=== PATIENT | male | born 1990 | race African-American/Black ===

== ENCOUNTER 2018-10-21 09:38 | Emergency (ER) | payer BC, OTHER ==
[~2018-10-21] VITALS: Ht 177.8 cm; Wt 54.9 kg
[2018-10-21] MEDS ORDERED: NKM (10:01)
[2018-10-21 10:05] VITALS: BP 133/81
--- NOTE | 2018-10-21 10:05 | NUR ---
ED Nurse Note: pt came in due to cough and cold x 10 days, pt stated he feel tightness on the chest when he coughs. pt is not in acute distress, seen by ermd. will continue to monitor.
[2018-10-21] MEDS ORDERED: ALBUTEROL SULF8.5 GM INH (10:33)
[2018-10-21] MEDS ORDERED: PROMETHAZINE-D118 ML ORAL (10:33)
[2018-10-21] MEDS ORDERED: PREDNISONE20 MG ORAL (10:33)
--- NOTE | 2018-10-21 10:40 | NUR ---
ER DISCHARGE NOTE: Patient is cleared to be discharged per ERMD, pt is aox4, on room air, with stable vital signs. pt was given dc and prescription instructions, pt was able to verbalize understanding, pt id band removed without complications. pt is able to ambulate with steady gait. pt took all belongings.
--- NOTE | 2018-10-21 15:45 | Emergency Room Report ---
History of Present Illness General Chief Complaint: Upper Respiratory Illness Source: Patient Present Illness HPI 28-year-old male presents ED for evaluation. Patient complaining of cough and chest tightness 10 days. States cough is dry, worsen night. Denies fevers or chills. Denies sore throat or earache. Denies sick contacts or recent travel. Denies smoking. No other aggravating relieving factors. Denies any other associated symptoms Allergies: Coded Allergies: No Known Allergies (Unverified , 10/21/18) Patient History Past Medical History: none Past Surgical History: none Pertinent Family History: none Social History: Denies: smoking, alcohol use, drug use Immunizations: UTD Reviewed Nursing Documentation: PMH: Agreed; PSxH: Agreed Nursing Documentation-PMH Past Medical History: No Stated History Review of Systems All Other Systems: negative except mentioned in HPI Physical Exam Vital Signs Date Time Temp Pulse Resp B/P (MAP) Pulse Ox O2 Delivery O2 Flow Rate FiO2 10/21/18 09:57 98.1 74 15 133/81 (98) 99 Room Air Sp02 EP Interpretation: reviewed, normal General Appearance: no apparent distress, alert, GCS 15, non-toxic Head: normocephalic, atraumatic Eyes: bilateral eye normal inspection, bilateral eye PERRL ENT: hearing grossly normal, normal pharynx, no angioedema, normal voice Neck: full range of motion, supple/symm/no masses Respiratory: chest non-tender, lungs clear, normal breath sounds, speaking full sentences Cardiovascular #1: regular rate, rhythm, no edema Cardiovascular #2: 2+ carotid (R), 2+ carotid (L), 2+ radial (R), 2+ radial (L) , 2+ dorsalis pedis (R), 2+ dorsalis pedis (L) Gastrointestinal: normal bowel sounds, non tender, soft, non-distended, no guarding, no rebound Rectal: deferred Genitourinary: normal inspection, no CVA tenderness Musculoskeletal: back normal, gait/station normal, normal range of motion, non- tender Neurologic: alert, oriented x3, responsive, motor strength/tone normal, sensory intact, speech normal Psychiatric: judgement/insight normal, memory normal, mood/affect normal, no suicidal/homicidal ideation Reflexes: 3+ bicep (R), 3+ bicep (L), 3+ tricep (R), 3+ tricep (L), 3+ knee (R) , 3+ knee (L) Skin: normal color, no rash, warm/dry, well hydrated Lymphatic: no adenopathy Medical Decision Making Diagnostic Impression: Primary Impression: Bronchitis ER Course Hospital Course 28-year-old male presents to ED complaining of cough, chest tightness x 10 days Differential diagnoses include: URI, pharyngitis, otitis media, asthma Clinical course Patient placed on stretcher. After initial history, physical exam reveals a young male in no acute distress. Bilateral TM unremarkable. No pharyngeal erythema. No tonsillar exudates. No lymphadenopathy. lungs clear. abdomen soft. Clinical findings consistent with bronchitis. Discussed findings with patient. Course is viral and self-limited. We'll prescribe an inhaler, steroids, cough medication. Safe for discharge with close outpatient follow-up. Does not have a PMD. We'll provide referrals Diagnosis - bronchitis Stable and discharged home with Rx albuterol,prednisone, promethazine. Instructed to followup with PMD. Return to ED if symptoms recur or worsen Last Vital Signs Date Time Temp Pulse Resp B/P (MAP) Pulse Ox O2 Delivery O2 Flow Rate FiO2 10/21/18 10:40 98.1 76 15 133/81 99 Room Air Status: improved Disposition: HOME, SELF-CARE Condition: Improved Scripts D-Methorphan Hb/Prometh Hcl* (PROMETHAZINE-DM SYRUP*) 118 Ml Syrup 5 ML ORAL Q6H PRN for For Cough, #118 ML 0 Refills Prov: Marlon Baumann MD 10/21/18 Albuterol Sulfate* (ALBUTEROL SULFATE MDI*) 8.5 Gm Hfa.aer.ad 2 PUFF INH Q6H, #1 EA 0 Refills Prov: Marlon Baumann MD 10/21/18 Prednisone* (PREDNISONE*) 20 Mg Tablet 40 MG ORAL DAILY, #10 TAB Prov: Marlon Baumann MD 10/21/18 Referrals: HUSSAIN CLIFTON (PCP) Darrius Jett Comp. Patient Instructions: Acute Bronchitis, [id number] Marlon Baumann MD October 21, 2018 15:45
== END 2018-10-21 10:40 | disposition home or self-care (01) ==
LOC: EMR 10:15
DX: J40 Bronchitis, not specified as acute or chronic (principal)
CPT/HCPCS: 99283